=== PATIENT | male | born 1950 | race Caucasian/White ===

== ENCOUNTER → 2023-10-04 08:47 | Outpatient (REF) | payer MEDICARE, OTHER, SELFPAY ==
[2023-10-04 09:34] LABS: % Basophils 1.8 % (0-2); % Eosinophils 1.8 % (0-6); % Immature Granulocytes 0.5 % (0-0.5); % Lymphocytes 27.6 % (20.5-51.1); % Monocytes 14.5 % (1.7-9.3); % Neutrophils 53.8 % (42.2-75.2); Absolute Basophils 0.1 10^3/uL (0-0.2); Absolute Eosinophils 0.1 10^3/uL (0-0.7); Absolute Lymphocytes 1.7 10^3/uL (1.2-3.4); Absolute Monocytes 0.9 10^3/uL (0.1-0.6); Absolute Neutrophils 3.3 10^3/uL (1.4-6.5); Hematocrit 46.4 % (39.0-52.0); Hemoglobin 15.9 g/dL (13.0-18.0); Mean Corp Hgb Conc. 34.3 g/dL (33.0-37.0); Mean Corpuscular Volume 90.4 fL (80.0-94.0); Mean Platelet Volume 9.8 fL (7.4-10.4); Nucleated Red Blood Cells % 0 % (-); Platelet Count 382 10^3/uL (130-400); Red Blood Cell Count 5.13 10^6/uL (4.70-6.10); Red Cell Dist. Width 12.2 % (11.5-14.5); White Blood Cell Count 6.1 10^3/uL (4.8-10.8)
[2023-10-04 09:49] LABS: ALT (SGPT) 26 U/L (0-50); AST (SGOT) 34 U/L (17-59); Albumin 4.3 g/dl (3.5-5.0); Alkaline Phosphatase 41 U/L (38-126); Blood Urea Nitrogen 30 mg/dl (9-20); Calcium 10.3 mg/dl (8.4-10.2); Carbon Dioxide 30 mmol/L (22-30); Chloride 100 mmol/L (98-107); Glucose 106 mg/dl (70-99); Magnesium 2.1 mg/dl (1.6-2.3); Potassium 4.7 mmol/L (3.5-5.1); Sodium 139 mmol/L (135-145); eGFR > 60.00
[2023-10-04 10:06] LABS: INR 1.49; PT 17.8 Sec (11.4-14.6)
== END ==
LOC: SDSPAT 08:47
PROVIDERS: ATTENDING PHYSICIAN Internal Medicine Cardiovascular Disease; FAMILY PHYSICIAN Family Medicine; OTHER PHYSICIAN Internal Medicine Cardiovascular Disease
DX: Z01.818 Encounter for other preprocedural examination (principal); I48.91 Unspecified atrial fibrillation
CPT/HCPCS: 36415; 80053; 83735; 85025; 85610; 86850; 86900; 86901; 93005

== ENCOUNTER → 2023-10-12 06:47 | Day surgery (SDC) | payer MEDICARE, OTHER, SELFPAY ==
[2023-10-04 08:59] VITALS: BMI 26.2
== END ==
LOC: CATH 06:47
PROVIDERS: ATTENDING PHYSICIAN Internal Medicine Cardiovascular Disease; FAMILY PHYSICIAN Family Medicine; OTHER PHYSICIAN Internal Medicine Cardiovascular Disease
DX: I08.3 Combined rheumatic disorders of mitral, aortic and tricuspid valves (principal); I48.19 Other persistent atrial fibrillation; I25.10 Atherosclerotic heart disease of native coronary artery without angina pectoris; I11.0 Hypertensive heart disease with heart failure; I50.20 Unspecified systolic (congestive) heart failure; E78.5 Hyperlipidemia, unspecified; Z79.01 Long term (current) use of anticoagulants
CPT/HCPCS: 93312; 93320; 93325

== ENCOUNTER 2023-10-13 07:39 | Day surgery (SDC) | payer MEDICARE, OTHER, SELFPAY ==
[2023-10-04 09:02] VITALS: BMI 26.2
[2023-10-13] VITALS (17 sets, daily range): BP systolic 72–142; BP diastolic 44–102; BMI 26.1
[2023-10-13] MEDS: TYLENOL 1000 MG PO (09:27)
[2023-10-13 12:10] LABS: ACT-LR - POC 300 Seconds (116-155)
--- NOTE | 2023-10-13 12:30 | ITS.CL.ABL ---
[employer] - Ablation
Ablation
Procedure Report:
ELECTROPHYSIOLOGY ABLATION STUDY
DATE:: October 13, 2023 REFERRING: Dr. Korey Rg
INDICATION: Longstanding persistent supraventricular tachycardia in the form of atrial fibrillation. Prior pulm vein isolation with a 28 mm cryoballoon in 2019
HISTORY: See H and P. As above
ANTIARRHYTHMIC DRUG: As above
PRE-PROCEDURE GUIDO: No atrial thrombus on intracardiac ultrasound
PRESENTING RHYTHM: A-fib
'TIME-OUT': called and confirmed.
SEDATION/ANESTHESIA: provided via the anesthesia department using general anesthesia (LMA).
INTRAVENOUS/ARTERIAL ACCESS:
Right femoral venous - 8Fr
Left femoral venous - 8 Fr, 6 Fr
[id number] suture
Ultrasound guidance for bilateral femoral vein access was utilized by me to obtain access with demonstration of normal anatomy
CHADS-VASC Score:
HAS-Bled Score
power plant operators supervisor: Dr. Vijay Haque
auger press operator Dr. Jose Antonio Mccann
PROCEDURE:
1. A decapolar CS catheter was placed within the CS for mapping and pacing. This was also used as the reference catheter for the 3-D map. There was isolation of the right superior and right middle pulmonary veins and antral level. There was an
isolation of the right inferior pulmonary vein and left severe pulmonary vein and left inferior pulm veins at ostial level. Pulmonary vein and extrapulmonary lesions were given during this procedure.
2. The intracardiac ultrasound catheter was positioned in the RA to identify the FO for targeting of transseptal puncture, assist in identification of the pulmonary vein ostia, monitoring pre and post ablation pulmonary vein flow velocities,
monitoring for 'bubble' formation during RF application as a sign of thermal injury, and to monitor for pericardial effusion during mapping and ablation procedure. Left atrial size, LV ejection fraction, and pulmonary vein flows were monitored
pre and post ablation procedure. The other valves were inspected and found to be free of significant regurgitation or stenosis.
3. Half of the calculated heparin bolus was administered prior to the first transeptal puncture. Transseptal puncture was performed to diagnose RA and LA pressure so that safety of LA mapping and ablation could be further assessed, and to access
the left atrium and pulmonary veins for mapping and ablation. This entailed advancing an 12 [place] steerable sheath with dilator into the superior vena cava and withdrawing both (monitoring intracardiac ultrasound, fluoroscopy and tip pressure)
with the tip oriented toward the atrial septum. The fossa ovalis was engaged (indicated by sudden displacement of the sheath tip as well as tenting of the fossa seen on intracardiac ultrasound). Left atrial access required a pass with the
[place] needle extended. Left atrial catheter position was confirmed by pressure monitoring (RA mean pressure 8 mm Hg and LA mean presure 14 mm Hg), LA saturation (99%), as well as fluoroscopy. The sheath was advanced over the dilator and
positioned in the left atrium. This procedure was repeated for the Agilis sheath. The remainder of the calculated heparin bolus was administered and heparin was
infused to maintain ACT at 300 -350 seconds throughout the case.
4. RA pacing was performed via the proximal decapolar poles and LA pacing was performed via the distal decapolar poles.
5. A quadrapolar catheter was first positioned at the His position for His Bundle recording which was tagged via the 3-D Navex sytem, and then passed to the RVA for RV pacing and recording.
6. The multipolar catheter and the pulse select catheter were placed in each of the LIPV, LSPV, RSPV and the RIPV.
7. Next, a 3-D map was created using Navex. A 3-D reconstructed CT image was compared to the 3-D Navex map to assist in anatomic interpretation, mapping and ablation. The CT image and the NavX image were fused.
8. Antral lesions were given to the left superior pulmonary vein, left inferior pulmonary vein, and floor of the right inferior pulmonary veins. The left atrial posterior wall was then isolated in a segmental fashion utilizing roof central left
atrial posterior wall and inferior lesion lines and the multipolar grid in sinus rhythm confirmed entrance and exit block in all 5 pulmonary veins and the left atrial posterior wall.
9. Normal sinus and AV node function noted. On intracardiac ultrasound there was mild to moderate eccentric mitral vegetation from the prior mitral valve repair which was demonstrated at baseline and stable post procedure. There is no pericardial
fusion pain post procedure.
TOTAL FLOURO TIME: 12 minutes 100 mGy
TOTAL RF DURATION: 0 minutes
REVERSAL OF HEPARIN: 40 mg of protamine, slow IV administration
COMPLICATIONS:
None
Intracardiac US shows no pericardial effusion post ablation.
SUMMARY:
Complex left atrial mapping and ablation.
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
supra pulmonary veins. Isolation of left atrial posterior wall.
RECOMMENDATIONS:
1. Admit to monitored bed.
2. Resume anticoagulation
3. Out of bed 4 hours
4. Consider same-day discharge
Copy to: Dr. Korey Rg
[2023-10-13] MEDS: ANESTHETIC LOZENGE 1 LOZENGE PO (13:19)
[2023-10-13 14:49] LABS: ACT-LR - POC > 397 Seconds (116-155)
--- NOTE | 2023-10-13 16:16 | W.PN.UPDATE ---
Update Note
Progress Note Update
Pt seen post PFA. Bilat groin sites without ht/bleeding, non tender. Post EKG NSR w/PVC, 70s, no acute changes. Resume eliquis tonight, continue other meds as before. Followup with Dr. Rg as scheduled. Home later today if groin sites/tele remain
stable.
== END 2023-10-13 17:43 | disposition home or self-care (01) ==
LOC: CATH 07:39
PROVIDERS: ATTENDING PHYSICIAN Internal Medicine Cardiovascular Disease; FAMILY PHYSICIAN Family Medicine; OTHER PHYSICIAN Internal Medicine Cardiovascular Disease
DX: I48.19 Other persistent atrial fibrillation (principal); E78.5 Hyperlipidemia, unspecified; I25.10 Atherosclerotic heart disease of native coronary artery without angina pectoris; I50.20 Unspecified systolic (congestive) heart failure; I11.0 Hypertensive heart disease with heart failure; I42.9 Cardiomyopathy, unspecified; R91.1 Solitary pulmonary nodule; M48.00 Spinal stenosis, site unspecified; M19.90 Unspecified osteoarthritis, unspecified site; Z79.01 Long term (current) use of anticoagulants; Z88.0 Allergy status to penicillin
CPT/HCPCS: C1732; C1894; C1769; C1730; C1759; C1892; 85347; 93005; 93656